=== PATIENT | female | born 1950 | race Caucasian/White ===

== ENCOUNTER → 2017-02-24 | Outpatient (CLI) | payer MEDICARE, BC ==
[2017-02-24 16:20] VITALS: BP 108/58; PULSE 81; RESP 16; TEMP 97.9; BMI 33.1
[2017-02-24 17:21] LABS: Anisocytosis Slight; CH 26.7; CHCM 31.1; HDW 2.76; Hypochromasia Moderate; MCH 26.4 pg (25.0-35.0); MCHC 30.6 g/dL (31.0-37.0); MCV 86.3 fL (80.0-100.0); Mean Platelet Volume 9.4; RBC 4.17 m/uL (3.80-5.40); WBC 6.5 k/uL (3.8-10.6)
[2017-02-24 17:31] LABS: INR 1.1 (<1.2); Partial Thromboplastin Time 22.2 sec (22.0-30.0); Prothrombin Time 10.8 sec (9.0-12.0)
[2017-02-24 17:39] LABS: ALT 45 U/L (9-52); AST 22 U/L (14-36); Alkaline Phosphatase 105 U/L (38-126); Anion Gap 9 mmol/L; Blood Urea Nitrogen 19 mg/dL (7-17); Calcium 8.5 mg/dL (8.4-10.2); Carbon Dioxide 28 mmol/L (22-30); Chloride 103 mmol/L (98-107); Cholesterol 131 mg/dL (<200); Glucose 77 mg/dL (74-99); HDL Cholesterol 61 mg/dL (40-60); Iron 46 ug/dL (37-170); Non-African American GFR(MDRD) >60 (>60 ml/min/1.73 sqM); Phosphorous 3.6 mg/dL (2.5-4.5); Potassium 4.7 mmol/L (3.5-5.1); Sodium 140 mmol/L (137-145); Total Bilirubin 0.3 mg/dL (0.2-1.3); Total Protein 6.3 g/dL (6.3-8.2)
[2017-02-24 17:50] LABS: % Iron Saturation 10.7 % (20-50); Prealbumin 22 mg/dL (18-36); Total Iron Binding Capacity 428 ug/dL (265-497)
[2017-02-24 18:44] LABS: Vitamin B12 507 pg/mL (239-931)
[2017-02-24 19:21] LABS: Hemoglobin A1C 5.6 % (4.2-6.1)
[2017-02-26 15:41] LABS: Selenium 123 mcg/L (63-160)
== END | disposition home or self-care (01) ==
LOC: BARWHC3 14:49
PROVIDERS: ATTEND Surgery Plastic and Reconstructive Surgery
DX: Z48.815 Encounter for surgical aftercare following surgery on the digestive system (principal); E66.01 Morbid (severe) obesity due to excess calories; Z98.84 Bariatric surgery status; E21.1 Secondary hyperparathyroidism, not elsewhere classified; E89.1 Postprocedural hypoinsulinemia; D50.8 Other iron deficiency anemias; E44.0 Moderate protein-calorie malnutrition; E55.9 Vitamin D deficiency, unspecified; K74.1 Hepatic sclerosis; N19 Unspecified kidney failure; K50.90 Crohn's disease, unspecified, without complications; Z68.33 Body mass index [BMI] 33.0-33.9, adult
CPT/HCPCS: 84255; 84134; 84425; 80061; 80053; 82607; 82728; 83036; 82525; 82746; 83540; 83550; 83735; 84100; 84443; 84590; 84630; 85027; 85610; 85730; 82306; 83970; 36415; G0463; 99211

== ENCOUNTER → 2017-03-10 | Outpatient (CLI) | payer MEDICARE, BC ==
--- NOTE | 2017-04-23 07:37 | P.PN ---
Progress Note - Text DATE OF SERVICE: 03/10/2017 CHIEF COMPLAINT: History of gastric bypass. HISTORY OF PRESENT ILLNESS: Rosangela Kennedy is a 66-year-old female who is status post Emmie-en-Y gastric bypass. She is a revision from an adjustable gastric band to Emmie-en-Y gastric bypass in May 2013. Her heaviest weight for her 5-foot- 7-inch frame was 268 pounds. Her ideal body weight is 158 pounds. She had gotten down as low as 186 pounds. Today she comes in weighing 215 pounds. She has gained 3 pounds in 2 weeks. Percent excess weight loss is 48 %. She has maintained 53-pound weight loss. Her body mass index is reduced from 42.1 down to 33.7. She presented 2 weeks ago. She reports feeling fatigued. She has gained another 3 pounds in 2 weeks. Separately, she is looking into restarting weight loss. She had chili for dinner last night. For breakfast she had yogurt with fruit. She drinks iced tea. Her protein intake is less than 70 g daily. She denies using a CPAP machine at this time. PAST MEDICAL HISTORY: 1. Morbid obesity. 2. Irritable bowel syndrome. 3. Hypothyroidism. 4. Dyslipidemia. 5. Morbid obesity. 6. Chronic constipation. PAST SURGICAL HISTORY: 1. Adjustable gastric band placement. 2. Removal of adjustable gastric band. 3. Emmie-en-Y gastric bypass. 4. Upper endoscopy. 5. Panniculectomy. MEDICATIONS: 1. Osphena. 2. Lyrica. 3. Multivitamin. 4. Singulair. 5. Lisinopril. 6. Synthroid. 7. Cardizem. 8. Cymbalta, discontinued. 9. Flexeril. 10. Vitamin D. 11. Zyrtec. 12. Nexium. 13. Effexor. 14. Estrogen replacement. 15. Fioricet. 16. Symbicort. 17. Elavil. 18. Xanax. ALLERGIES: ERYTHROMYCIN, ADHESIVE TAPE, ENVIRONMENTAL ALLERGIES. SOCIAL HISTORY: No current tobacco use. FAMILY HISTORY: Significant for morbid obesity including heart disease. REVIEW OF SYSTEMS: CONSTITUTIONAL: Weight gain 25 pounds from her lowest point. Her heaviest weight for her 5-foot- 7-inch frame was 268 pounds. Her ideal body weight is 158 pounds. She had gotten down as low as 186 pounds. MUSCULOSKELETAL: Osteoarthritis of lower back, including bilateral knees and hips with fibromyalgia. SKIN: History of redness including painful sores of the pannus. HEENT: Wears glasses. Denies any troubles with hearing. ENDOCRINE: History of hypothyroidism. No reports of diabetes. RESPIRATORY: No reports of dyspnea exertion or obstructive sleep apnea. CARDIOVASCULAR: No reports of the chest pain. History of cardiomyopathy. History of hyperlipidemia, improved. GI: Chronic constipation, improved with stool softener. No reports of gastroesophageal reflux disease. NEURO: No reports of headaches or seizure disorders. PSYCH: No reports of suicidal ideation, however, has depression. SKIN: Panniculitis resolved. No skin cancer. PHYSICAL EXAM: VITAL SIGNS: 5 feet 7 inches, 214 pounds. Body mass index of 33.1. Vital Signs Temp 97.8 F 03/10/17 16:13 Pulse 90 03/10/17 16:13 Resp 16 03/10/17 16:13 BP 112/57 03/10/17 16:13 Pulse Ox GENERAL: Well developed and in no acute distress. Pleasant. HEENT: No sclera icterus. Extraocular movements grossly intact. Moist buccal mucosa. Head is atraumatic, normocephalic. Hears conversational speech. No nasal drainage. NECK: Supple without lymphadenopathy. No JV distention. CHEST: Non-labored respirations and equal bilateral excursions. CARDIOVASCULAR: Regular rate and rhythm. Palpable 2+ radial pulses. ABDOMEN: Soft, nontender. Nondistended. MUSCULOSKELETAL: No clubbing, cyanosis or edema. NEUROLOGIC: No focal or lateralizing signs. Cranial nerves II through XII grossly intact. PSYCH: Appropriate affect. Alert and oriented to person, place and time. BREAST: There are no palpable lesions along the bilateral breasts. No axillary adenopathy. SKIN: Good skin turgor. Well perfused. LABS: Laboratory Last Values WBC 6.5 k/uL (3.8-10.6) 02/24/17 17:04 RBC 4.17 m/uL (3.80-5.40) 02/24/17 17:04 Hgb 11.0 gm/dL (11.4-16.0) L 02/24/17 17:04 Hct 36.0 % (34.0-46.0) 02/24/17 17:04 MCV 86.3 fL (80.0-100.0) 02/24/17 17:04 MCH 26.4 pg (25.0-35.0) 02/24/17 17:04 MCHC 30.6 g/dL (31.0-37.0) L 02/24/17 17:04 RDW 17.0 % (11.5-15.5) H 02/24/17 17:04 Plt Count 251 k/uL (150-450) 02/24/17 17:04 Hypochromasia Moderate 02/24/17 17:04 Anisocytosis Slight 02/24/17 17:04 PT 10.8 sec (9.0-12.0) 02/24/17 17:04 INR 1.1 (<1.2) 02/24/17 17:04 APTT 22.2 sec (22.0-30.0) 02/24/17 17:04 Sodium 140 mmol/L (137-145) 02/24/17 17:04 Potassium 4.7 mmol/L (3.5-5.1) 02/24/17 17:04 Chloride 103 mmol/L (98-107) 02/24/17 17:04 Carbon Dioxide 28 mmol/L (22-30) 02/24/17 17:04 Anion Gap 9 mmol/L 02/24/17 17:04 BUN 19 mg/dL (7-17) H 02/24/17 17:04 Creatinine 0.90 mg/dL (0.52-1.04) 02/24/17 17:04 Est GFR (MDRD) Af Amer >60 (>60 ml/min/1.73 sqM) 02/24/17 17:04 Est GFR (MDRD) Non-Af >60 (>60 ml/min/1.73 sqM) 02/24/17 17:04 Glucose 77 mg/dL (74-99) 02/24/17 17:[address] Glu mg/dL 114 mg/dL 02/24/17 17:04 Hemoglobin A1c 5.6 % (4.2-6.1) 02/24/17 17:04 Calcium 8.5 mg/dL (8.4-10.2) 02/24/17 17:04 Phosphorus 3.6 mg/dL (2.5-4.5) 02/24/17 17:04 Magnesium 2.0 mg/dL (1.6-2.3) 02/24/17 17:04 Iron 46 ug/dL (37-170) 02/24/17 17:04 TIBC 428 ug/dL (265-497) 02/24/17 17:04 % Saturation 10.7 % (20-50) L 02/24/17 17:04 Ferritin 6 ng/mL (11-264) L 02/24/17 17:04 Total Bilirubin 0.3 mg/dL (0.2-1.3) 02/24/17 17:04 AST 22 U/L (14-36) 02/24/17 17:04 ALT 45 U/L (9-52) 02/24/17 17:04 Alkaline Phosphatase 105 U/L (38-126) 02/24/17 17:04 Total Protein 6.3 g/dL (6.3-8.2) 02/24/17 17:04 Albumin 3.7 g/dL (3.5-5.0) 02/24/17 17:04 Prealbumin 22 mg/dL (18-36) 02/24/17 17:04 Triglycerides 74 mg/dL (<150) 02/24/17 17:04 Cholesterol 131 mg/dL (<200) 02/24/17 17:04 LDL Cholesterol, Calc 55 mg/dL (0-99) 02/24/17 17:04 HDL Cholesterol 61 mg/dL (40-60) H 02/24/17 17:04 Vitamin A 51 ug/dL (38-106) 02/24/17 17:04 Vitamin B1 43 ug/L (38-122) 02/24/17 17:04 Vitamin B12 507 pg/mL (239-931) 02/24/17 17:04 Vitamin D 25-Hydroxy 50.0 ng/mL (30.0-100.0) 02/24/17 17:04 Folate 6.84 ng/mL 02/24/17 17:04 TSH 0.244 mIU/L (0.465-4.680) L 02/24/17 17:04 PTH Intact 182.1 pg/mL (14.0-72.0) H 02/24/17 17:04 Copper 1268 ug/L (810-1990) 02/24/17 17:04 Selenium 123 mcg/L (63-160) 02/24/17 17:04 Zinc 65 ug/dL (60-130) 02/24/17 17:04 ASSESSMENT: 1. Morbid obesity due to exogenous caloric intake. 2. Body mass index reduced from 42.1 down to 33.7. 3. Status post adjustable gastric band removal from complications. 4. Status post Emmie-en-Y gastric bypass. 5. Panniculitis, resolved. 6. Generalized fatigue. 7. Hypothyroidism. 8. Osteoarthritis of the lower back. 9. Osteoarthritis of hips secondary to morbid obesity. 10. Secondary hyperparathyroidism. 11. Weight gain. 12. Iron deficiency anemia. 13. Hypertensive cardiomyopathy, improved. 14. Secondary hyperparathyroidism. 15. Hypercholesterolemia resolved. PLAN: 1. She complains of fatigue, her laboratory results confirmed by deficiency anemia. Recommend iron infusions as decreased intestinal malabsorption following gastric bypass procedure. 2. Her cholesterol profile is within normal limits with any resolution of hyperlipidemia. 3. Her TSH level is low. Recommend adjustment of thyroid medication. 4. Her parathyroid hormone is elevated which suggests increased calcium intake. 5. Recommend ketogenic diet with 800 kcal high-protein 2 week diet. 6. For sleep hygiene, recommend at least 8 hours of sleep which will also facilitate improving her metabolism.
== END | disposition home or self-care (01) ==
CPT/HCPCS: 99211

== ENCOUNTER → 2017-06-16 | Outpatient (CLI) | payer MEDICARE, BC ==
[2017-06-16 16:12] VITALS: BP 100/62; PULSE 62; TEMP 97.8; BMI 34.3
[2017-06-16 17:59] LABS: Anisocytosis Slight; HCT 42.7 % (34.0-46.0); HGB 13.6 gm/dL (11.4-16.0); MCH 30.3 pg (25.0-35.0); MCHC 31.7 g/dL (31.0-37.0); MCV 95.6 fL (80.0-100.0); Mean Platelet Volume 8.2; Platelet Count 239 k/uL (150-450); RBC 4.47 m/uL (3.80-5.40); RDW 18.7 % (11.5-15.5); WBC 4.6 k/uL (3.8-10.6)
[2017-06-16 18:10] LABS: INR 1.1 (<1.2); Partial Thromboplastin Time 23.5 sec (22.0-30.0); Prothrombin Time 10.7 sec (9.0-12.0)
[2017-06-16 18:28] LABS: ALT 36 U/L (9-52); AST 20 U/L (14-36); Albumin 3.6 g/dL (3.5-5.0); Alkaline Phosphatase 87 U/L (38-126); Anion Gap 7 mmol/L; Blood Urea Nitrogen 18 mg/dL (7-17); Calcium 8.7 mg/dL (8.4-10.2); Carbon Dioxide 27 mmol/L (22-30); Chloride 106 mmol/L (98-107); Cholesterol 127 mg/dL (<200); Glucose 73 mg/dL (74-99); HDL Cholesterol 57 mg/dL (40-60); LDL Cholesterol,Calculated 57 mg/dL (0-99); Magnesium 1.9 mg/dL (1.6-2.3); Potassium 4.6 mmol/L (3.5-5.1); Sodium 140 mmol/L (137-145); Total Bilirubin 0.1 mg/dL (0.2-1.3); Triglycerides 66 mg/dL (<150)
[2017-06-17 00:53] LABS: Iron Saturation 27.42 (12.00-45.00)
[2017-06-17 01:02] LABS: Vitamin D 25 Hydroxy 36.2 ng/mL (30.0-100.0)
[2017-06-17 01:44] LABS: Folate, Serum 14.2 ng/mL
[2017-06-17 01:47] LABS: Parathyroid Hormone Intact 132.5 pg/mL (14.0-72.0)
[2017-06-17 02:00] LABS: Hemoglobin A1C 5.4 % (4.0-6.0)
[2017-06-21 12:41] LABS: Zinc, Serum 59 ug/dL (60-130)
[2017-06-22 04:50] LABS: Vitamin B1 61 ug/L (38-122)
[2017-06-22 18:31] LABS: Selenium 111 mcg/L (63-160)
[2017-06-23 15:32] LABS: Vitamin A 55 ug/dL (38-106)
--- NOTE | 2017-08-09 17:18 | P.PN ---
Subjective Progress Note Date: 06/16/17 DATE OF SERVICE: 06/16/2017 CHIEF COMPLAINT: History of gastric bypass. HISTORY OF PRESENT ILLNESS: Rosangela Kennedy is a 66-year-old female who is status post Emmie-en-Y gastric bypass. She is a revision from an adjustable gastric band to Emmie-en-Y gastric bypass in May 2013. Her heaviest weight for her 5-foot- 7-inch frame was 268 pounds. Her ideal body weight is 158 pounds. She had gotten down as low as 186 pounds. Today she comes in weighing 212 pounds. She has gained 2 pounds in 3 months. Percent excess weight loss is 50%. She has maintained 56-pound weight loss. Her body mass index is reduced from 42.1 down to 33.3. Upon her last evaluation, she had moderate complaints about generalized fatigue and weakness. She has received iron infusions and reports feeling much better. Separately, she is adjusting her dietary intake to increase her protein. As result, she has lost weight. PAST MEDICAL HISTORY: 1. Morbid obesity. 2. Irritable bowel syndrome. 3. Hypothyroidism. 4. Dyslipidemia. 5. Morbid obesity. 6. Chronic constipation. PAST SURGICAL HISTORY: 1. Adjustable gastric band placement. 2. Removal of adjustable gastric band. 3. Emmie-en-Y gastric bypass. 4. Upper endoscopy. 5. Panniculectomy. MEDICATIONS: 1. Osphena. 2. Lyrica. 3. Multivitamin. 4. Singulair. 5. Lisinopril. 6. Synthroid. 7. Cardizem. 8. Cymbalta, discontinued. 9. Flexeril. 10. Vitamin D. 11. Zyrtec. 12. Nexium. 13. Effexor. 14. Estrogen replacement. 15. Fioricet. 16. Symbicort. 17. Elavil. 18. Xanax. ALLERGIES: ERYTHROMYCIN, ADHESIVE TAPE, ENVIRONMENTAL ALLERGIES. SOCIAL HISTORY: No current tobacco use. FAMILY HISTORY: Significant for morbid obesity including heart disease. REVIEW OF SYSTEMS: CONSTITUTIONAL: Weight gain 25 pounds from her lowest point. Her heaviest weight for her 5-foot- 7-inch frame was 268 pounds. Her ideal body weight is 158 pounds. She had gotten down as low as 186 pounds. MUSCULOSKELETAL: Osteoarthritis of lower back, including bilateral knees and hips with fibromyalgia. SKIN: History of redness including painful sores of the pannus. HEENT: Wears glasses. Denies any troubles with hearing. ENDOCRINE: History of hypothyroidism. No reports of diabetes. RESPIRATORY: No reports of dyspnea exertion or obstructive sleep apnea. CARDIOVASCULAR: No reports of the chest pain. History of cardiomyopathy. History of hyperlipidemia, improved. GI: Chronic constipation, improved with stool softener. No reports of gastroesophageal reflux disease. NEURO: No reports of headaches or seizure disorders. PSYCH: No reports of suicidal ideation, however, has depression. SKIN: Panniculitis resolved. No skin cancer. PHYSICAL EXAM: VITAL SIGNS: 5 feet 7 inches, 212 pounds. Body mass index of 33.3. Vital Signs Temp 97.8 F 06/16/17 16:03 Pulse 62 06/16/17 16:03 Resp BP 100/62 06/16/17 16:03 Pulse Ox GENERAL: Well developed and in no acute distress. Pleasant. HEENT: No sclera icterus. Extraocular movements grossly intact. Moist buccal mucosa. Head is atraumatic, normocephalic. Hears conversational speech. No nasal drainage. NECK: Supple without lymphadenopathy. No JV distention. CHEST: Non-labored respirations and equal bilateral excursions. CARDIOVASCULAR: Regular rate and rhythm. Palpable 2+ radial pulses. ABDOMEN: Soft, nontender. Nondistended. MUSCULOSKELETAL: No clubbing, cyanosis or edema. NEUROLOGIC: No focal or lateralizing signs. Cranial nerves II through XII grossly intact. PSYCH: Appropriate affect. Alert and oriented to person, place and time. SKIN: Good skin turgor. Well perfused. LABS: Previous labs demonstrate iron deficiency anemia. PTH level was elevated. ASSESSMENT: 1. Morbid obesity due to exogenous caloric intake. 2. Body mass index reduced from 42.1 down to 33.3. 3. Status post adjustable gastric band removal from complications. 4. Status post Emmie-en-Y gastric bypass. 5. Panniculitis, resolved. 6. Generalized fatigue. 7. Hypothyroidism. 8. Osteoarthritis of the lower back. 9. Osteoarthritis of hips secondary to morbid obesity. 10. Secondary hyperparathyroidism. 11. Weight gain. 12. Iron deficiency anemia. 13. Hypertensive cardiomyopathy, improved. 14. Secondary hyperparathyroidism. 15. Hypercholesterolemia resolved. PLAN: 1. Recommend repeat bariatric panel for correction of nutritional deficiencies. 2. Recommend protein intake of 75 g daily. 3. Follow-up with the bariatric Center yearly. Laboratory Last Values WBC 4.6 k/uL (3.8-10.6) 06/16/17 17:09 RBC 4.47 m/uL (3.80-5.40) 06/16/17 17:09 Hgb 13.6 gm/dL (11.4-16.0) 06/16/17 17:09 Hct 42.7 % (34.0-46.0) 06/16/17 17:09 MCV 95.6 fL (80.0-100.0) 06/16/17 17:09 MCH 30.3 pg (25.0-35.0) 06/16/17 17:09 MCHC 31.7 g/dL (31.0-37.0) 06/16/17 17:09 RDW 18.7 % (11.5-15.5) H 06/16/17 17:09 Plt Count 239 k/uL (150-450) 06/16/17 17:09 Anisocytosis Slight 06/16/17 17:09 PT 10.7 sec (9.0-12.0) 06/16/17 17:09 INR 1.1 (<1.2) 06/16/17 17:09 APTT 23.5 sec (22.0-30.0) 06/16/17 17:09 Sodium 140 mmol/L (137-145) 06/16/17 17:09 Potassium 4.6 mmol/L (3.5-5.1) 06/16/17 17:09 Chloride 106 mmol/L (98-107) 06/16/17 17:09 Carbon Dioxide 27 mmol/L (22-30) 06/16/17 17:09 Anion Gap 7 mmol/L 06/16/17 17:09 BUN 18 mg/dL (7-17) H 06/16/17 17:09 Creatinine 1.00 mg/dL (0.52-1.04) 06/16/17 17:09 Est GFR (MDRD) Af Amer >60 (>60 ml/min/1.73 sqM) 06/16/17 17:09 Est GFR (MDRD) Non-Af 56 (>60 ml/min/1.73 sqM) 06/16/17 17:09 Glucose 73 mg/dL (74-99) L 06/16/17 17:[address] Glu mg/dL 108 06/16/17 17:09 Hemoglobin A1c 5.4 % (4.0-6.0) 06/16/17 17:09 Calcium 8.7 mg/dL (8.4-10.2) 06/16/17 17:09 Phosphorus 3.0 mg/dL (2.5-4.5) 06/16/17 17:09 Magnesium 1.9 mg/dL (1.6-2.3) 06/16/17 17:09 Iron 85 ug/dL (50-170) 06/16/17 17:09 TIBC 310 ug/dL (228-460) 06/16/17 17:09 Iron Saturation 27.42 (12.00-45.00) 06/16/17 17:09 Ferritin 29.4 ng/mL (10.0-291.0) 06/16/17 17:09 Total Bilirubin 0.1 mg/dL (0.2-1.3) L 06/16/17 17:09 AST 20 U/L (14-36) 06/16/17 17:09 ALT 36 U/L (9-52) 06/16/17 17:09 Alkaline Phosphatase 87 U/L (38-126) 06/16/17 17:09 Total Protein 6.0 g/dL (6.3-8.2) L 06/16/17 17:09 Albumin 3.6 g/dL (3.5-5.0) 06/16/17 17:09 Prealbumin 21.0 mg/dL (18.0-42.0) 06/16/17 17:09 Triglycerides 66 mg/dL (<150) 06/16/17 17:09 Cholesterol 127 mg/dL (<200) 06/16/17 17:09 LDL Cholesterol, Calc 57 mg/dL (0-99) 06/16/17 17:09 HDL Cholesterol 57 mg/dL (40-60) 06/16/17 17:09 Vitamin A 55 ug/dL (38-106) 06/16/17 17:09 Vitamin B1 61 ug/L (38-122) 06/16/17 17:09 Vitamin B12 557.0 pg/mL (200.0-944.0) 06/16/17 17:09 Vitamin D 25-Hydroxy 36.2 ng/mL (30.0-100.0) 06/16/17 17:09 Folate 14.2 ng/mL 06/16/17 17:09 TSH <0.015 mIU/L (0.465-4.680) L 06/16/17 17:09 PTH Intact 132.5 pg/mL (14.0-72.0) H 06/16/17 17:09 Copper 1524 ug/L (810-1990) 06/16/17 17:09 Selenium 111 mcg/L (63-160) 06/16/17 17:09 Zinc 59 ug/dL (60-130) L 06/16/17 17:09 Recommend zinc supplement. Recommend increased calcium intake over 1500 mg daily. Recommend adjustment of Synthroid for suppressed TSH. Objective - Vital Signs Vital signs: Vital Signs Temp 97.8 F 06/16/17 16:03 Pulse 62 06/16/17 16:03 Resp BP 100/62 06/16/17 16:03 Pulse Ox Intake & Output 06/15/17 06/16/17 06/16/17 18:59 06:59 18:59 Weight 96.57 kg - Labs CBC & Chem 7: 06/16/17 17:09 06/16/17 17:09
== END | disposition home or self-care (01) ==
LOC: BARWHC3 15:18
PROVIDERS: ATTEND Surgery Plastic and Reconstructive Surgery
DX: Z09 Encounter for follow-up examination after completed treatment for conditions other than malignant neoplasm (principal); E66.01 Morbid (severe) obesity due to excess calories; E03.9 Hypothyroidism, unspecified; M47.816 Spondylosis without myelopathy or radiculopathy, lumbar region; M16.0 Bilateral primary osteoarthritis of hip; N25.81 Secondary hyperparathyroidism of renal origin; D50.9 Iron deficiency anemia, unspecified; I11.9 Hypertensive heart disease without heart failure; E89.1 Postprocedural hypoinsulinemia; D50.8 Other iron deficiency anemias; K90.89 Other intestinal malabsorption; E55.9 Vitamin D deficiency, unspecified; K76.9 Liver disease, unspecified; T56.894A Toxic effect of other metals, undetermined, initial encounter; K50.90 Crohn's disease, unspecified, without complications; Z68.33 Body mass index [BMI] 33.0-33.9, adult; Z88.1 Allergy status to other antibiotic agents; Z91.09 Other allergy status, other than to drugs and biological substances; Z91.048 Other nonmedicinal substance allergy status; Z79.899 Other long term (current) drug therapy; Z98.84 Bariatric surgery status
CPT/HCPCS: 84255; 84134; 84425; 80061; 80053; 82607; 82728; 82525; 82746; 83540; 83550; 83735; 84100; 84443; 84590; 84630; 85027; 85610; 85730; 82306; 83970; 83036; 36415; G0463; 99211

== ENCOUNTER → 2018-04-13 | Outpatient (CLI) | payer MEDICARE, BC ==
--- NOTE | 2018-04-13 14:16 | P.PN ---
Subjective Progress Note Date: 04/13/18 HPI: She is having troubles with her knee. She has lost 10 pounds from 1 year ago. She reports being fatigued. ABDOMEN: No incisional hernia PLAN: 1. Labs this year for her 6 year visit 2. She is moving to [place] 3. She will follow-up yearly 4. Iron infusions.
[2018-04-13 14:21] VITALS: BP 128/60; PULSE 71; TEMP 98.2; BMI 32.1
[2018-04-13 15:12] LABS: HCT 45.3 % (34.0-46.0); HGB 14.5 gm/dL (11.4-16.0); MCH 31.5 pg (25.0-35.0); MCHC 31.9 g/dL (31.0-37.0); MCV 98.7 fL (80.0-100.0); Mean Platelet Volume 7.5; Platelet Count 217 k/uL (150-450); RBC 4.59 m/uL (3.80-5.40); RDW 13.2 % (11.5-15.5); WBC 6.4 k/uL (3.8-10.6)
[2018-04-13 15:19] LABS: INR 1.1 (<1.2); Partial Thromboplastin Time 22.2 sec (22.0-30.0); Prothrombin Time 10.4 sec (9.0-12.0)
[2018-04-13 15:27] LABS: ALT 33 U/L (9-52); AST 21 U/L (14-36); Albumin 3.5 g/dL (3.5-5.0); Alkaline Phosphatase 71 U/L (38-126); Anion Gap 4 mmol/L; Blood Urea Nitrogen 25 mg/dL (7-17); Calcium 8.7 mg/dL (8.4-10.2); Carbon Dioxide 30 mmol/L (22-30); Chloride 107 mmol/L (98-107); Cholesterol 120 mg/dL (<200); Glucose 70 mg/dL (74-99); HDL Cholesterol 53 mg/dL (40-60); LDL Cholesterol,Calculated 53 mg/dL (0-99); Magnesium 2.1 mg/dL (1.6-2.3); Potassium 4.9 mmol/L (3.5-5.1); Sodium 141 mmol/L (137-145); Total Bilirubin 0.4 mg/dL (0.2-1.3); Total Protein 6.1 g/dL (6.3-8.2); Triglycerides 71 mg/dL (<150)
[2018-04-13 18:47] LABS: Iron Saturation 53.42 (12.00-45.00)
[2018-04-13 18:56] LABS: Vitamin D 25 Hydroxy 36.8 ng/mL (30.0-100.0)
[2018-04-13 19:08] LABS: Folate, Serum 15.3 ng/mL
[2018-04-13 20:22] LABS: Parathyroid Hormone Intact 143.6 pg/mL (14.0-72.0)
[2018-04-13 22:54] LABS: Hemoglobin A1C 5.3 % (4.0-6.0)
[2018-04-14 15:06] LABS: Zinc, Serum 104 ug/dL (60-130)
[2018-04-15 07:13] LABS: Vitamin B1 88 ug/L (38-122)
== END | disposition home or self-care (01) ==
LOC: BARWHC3 13:05
PROVIDERS: ATTEND Surgery Plastic and Reconstructive Surgery
DX: R53.83 Other fatigue (principal); E21.1 Secondary hyperparathyroidism, not elsewhere classified; E89.1 Postprocedural hypoinsulinemia; D50.9 Iron deficiency anemia, unspecified; K90.9 Intestinal malabsorption, unspecified; E55.9 Vitamin D deficiency, unspecified; K76.9 Liver disease, unspecified; N19 Unspecified kidney failure; K50.90 Crohn's disease, unspecified, without complications; E66.01 Morbid (severe) obesity due to excess calories; Z68.32 Body mass index [BMI] 32.0-32.9, adult
CPT/HCPCS: 84255; 84134; 84425; 80061; 80053; 82607; 82728; 82525; 82746; 83540; 83550; 83735; 84100; 84443; 84590; 84630; 85027; 85610; 85730; 82306; 83970; 83036; G0463; 99211